=== PATIENT | female | born 1945 | race Caucasian/White ===

== ENCOUNTER 2016-04-21 11:36 | Inpatient (IN) | payer MEDICARE, MEDICAID ==
[2016-04-21] VITALS (7 sets, daily range): BP systolic 131–135; BP diastolic 67–69; PULSE 57–60; RESP 20–22; TEMP 96.7–97.3; O2SAT 74–97; Ht 160 cm; Wt 104.3 kg
[~2016-04-21] VITALS: Ht 160 cm; Wt 104.3 kg
[~2016-04-21 11:36] MED LIST: ASCO-296 PO; ASPI-730 PO; ATEN1TAB30 PO; ATOR40TA20 PO; CALC600T12 PO; CLOP75TA13 PO; MULT-806 PO; NITR0.4T28 SL; POTA1TAB11 PO; POTASSIUM CHLORIDE 10 MEQ TABLET PO SCH
--- OUTSIDE RECORDS SUMMARY | 2016-04-21 11:42 | XMS REPORT ---
Author Author Dolly Barron [facility] eClinicalWorks Address Unknown Phone Unavailable Care Team Providers Care Structural Welder Name Role Phone Dolly Barron CP Unavailable Allergies No Known Allergies Problems Problem Type Condition Code Onset Dates Condition Status Problem Malignant neoplasm of breast (female), unspecified site 174.9 Active Problem Hypertension, benign 401.1 Active Problem Tobacco use disorder 305.1 Active Assessment Hypertension, benign 401.1 Active Problem Other and unspecified hyperlipidemia 272.4 Active Problem Asthma, unspecified, unspecified status 493.90 Active Medications Medication Code System Code Instructions Start Date End Date Status Dosage Atenolol-Chlorthalidone [facility] [address]-33 50-25 MG Orally Once a day Oct 09, 2012 1 tablet Results No Known Results Summary Purpose eClinicalWorks Submission
--- OUTSIDE RECORDS SUMMARY | 2016-04-21 11:42 | XMS REPORT ---
Author Author Dolly Barron [facility] eClinicalWorks Address Unknown Phone Unavailable Care Team Providers Care Acoustic Engineer Name Role Phone Dolly Barron CP Unavailable Allergies No Known Allergies Problems Problem Type Condition ICD-9 Code Onset Dates Condition Status Problem Malignant neoplasm of breast (female), unspecified site 174.9 Active Problem Hypertension, benign 401.1 Active Problem Tobacco use disorder 305.1 Active Problem Other and unspecified hyperlipidemia 272.4 Active Problem Asthma, unspecified, unspecified status 493.90 Active Medications No Known Medications Vital Signs Date/Time: Nov 20, 2013 Height 63.5 inches Weight 230.8 lbs Temperature 98.4 F Blood Pressure Diastolic 66 mm Hg Blood Pressure Systolic 122 mm Hg Cardiac Monitoring Heart Rate 80 Beats per Minute BMI 40.24 Index Respiratory Rate 16 per Minute Results No Known Results Summary Purpose eClinicalWorks Submission
--- OUTSIDE RECORDS SUMMARY | 2016-04-21 11:42 | XMS REPORT ---
Author Author Dolly Barron [facility] eClinicalWorks Address Unknown Phone Unavailable Care Team Providers Care Bean Sorter Name Role Phone Dolly Barron CP Unavailable [...]
--- OUTSIDE RECORDS SUMMARY | 2016-04-21 11:42 | XMS REPORT ---
Author Author Dolly Barron [facility] eClinicalWorks Address Unknown Phone Unavailable Care Team Providers Care Money Position Officer Name Role Phone Dolly Barron CP Unavailable Allergies No Known Allergies Problems Problem Type Condition Code Onset Dates Condition Status Problem Malignant neoplasm of breast (female), unspecified site 174.9 Active Problem Hypertension, benign 401.1 Active Problem Tobacco use disorder 305.1 Active Problem Unspecified asthma, uncomplicated J45.909 Active Problem Other and unspecified hyperlipidemia 272.4 Active Problem Asthma, unspecified, unspecified status 493.90 Active Medications Medication Code System Code Instructions Start Date End Date Status Dosage Albuterol Sulfate [facility] [address]-56 (2.5 MG/3ML) 0.083% Inhalation. DX code J45.909 3-4 times a day as needed May 13, 2014 3 ml. May refill early this month in May 2015 Results No Known Results Summary Purpose eClinicalWorks Submission
--- OUTSIDE RECORDS SUMMARY | 2016-04-21 11:42 | XMS REPORT ---
Author Dolly Jett eClinicalWorks Address Unknown Phone Unavailable Care Team Providers Care Education Department Registrar Name Role Phone Dolly Barron CP Unavailable Allergies, Adverse Reactions, Alerts Substance Reaction Event Type N.K.D.A. Info Not Available Non Drug Allergy Problems Problem Type Condition Code Onset Dates Condition Status Problem Unspecified asthma, uncomplicated J45.909 Active Problem Other and unspecified hyperlipidemia 272.4 Active Problem Asthma, unspecified, unspecified status 493.90 Active Problem Other hyperlipidemia E78.4 Active Problem 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 Problem Essential (primary) hypertension I10 Active Problem Malignant neoplasm of breast (female), unspecified site 174.9 Active Problem Hypertension, benign 401.1 Active Problem Claudication of both lower extremities I73.9 Active Problem Tobacco use disorder 305.1 Active Assessment 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 DX code J45.909 3-4 times a day as needed May 13, 2014 3 ml. May refill early this month in May 2015 Atenolol-Chlorthalidone [facility] [address]-00 50-25 MG Orally Once a day Oct 09, 2012 1 tablet Potassium [facility] [address]-65 ONCE A DAY not defined Calcium [facility] 75309-25227 600 MG ONCE A DAY 1 TABLET Quinine Sulfate [facility] [address]-98 PRN not defined Lipitor [facility] 90606894859 40MG Orally Once a day 1 tablet Lipitor [facility] [address]-50 40 MG Orally Once a day Oct 09, 2012 1 tablet Voltaren [facility] [address]-29 1 % Transdermal up to 4 times a day Jan 04, 2016 May 03, 2016 2-4 grams Multivitamins [facility] [address]-54 ONCE A DAY 1 TABLET Procedures Procedure Coding System Code Date OFFICE VISIT, EST-LOW COMPLEXITY (15 MIN.) CPT-4 05240 Jan 04, 2016 [facility] visit Established Patient CPT-4 G0467 Jan 04, 2016 Vital Signs Date/Time: Jan 04, 2016 Temperature 98.1 F Height 63.5 in Weight 241 lbs Blood Pressure Diastolic 68 mm Hg Blood Pressure Systolic 100 mm Hg Cardiac Monitoring Heart Rate 65 /min BMI 42.02 Index Oximetry 95 % Respiratory Rate 18 /min Results No Known Results Summary Purpose eClinicalWorks Submission
--- OUTSIDE RECORDS SUMMARY | 2016-04-21 11:42 | XMS REPORT ---
Author Author Dolly Barron [facility] Address [address], [place] [id number] Care Team Providers Care Sounding Device Operator Name Role Phone Dolly Barron Unavailable [phone] PROBLEMS Type Condition ICD9-CM Code [id number] Code Onset Dates Condition Status SNOMED Code Problem Asthma, unspecified, unspecified status 493.90 Active 64731914 Problem Hypertension, benign 401.1 Active 98675157 Problem Other and unspecified hyperlipidemia 272.4 Active 60533769 Assessment Essential (primary) hypertension I10 Jan, Active 30383526 Problem Unspecified asthma, uncomplicated J45.909 Active 34461092 Problem Essential (primary) hypertension I10 Active 08721852 Problem Other hyperlipidemia E78.4 Active 40508778 Problem Tobacco use disorder 305.1 Active 413439230 Problem Malignant neoplasm of breast (female), unspecified site 174.9 Active 055345596 Problem 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 616159527 Problem Claudication of both lower extremities I73.9 Active 458007682 ALLERGIES Unknown Allergies SOCIAL HISTORY No smoking Hx information available PLAN OF CARE Activity Details Pending Test In House HB A1c Pending Test In House CMP ,Reason: VITAL SIGNS MEDICATIONS Medication Instructions Dosage Frequency Start Date End Date Duration Status Quinine Sulfate Active Calcium 600 MG 1 TABLET 24h Active Aspirin 81 MG Orally ONCE A DAY 1 TABLET 24h Active Lipitor 40MG Orally Once a day 1 tablet 24h 30 Active Vitamin C 500 MG 1 TABLET 24h Active Lipitor 40 MG Orally Once a day 1 tablet 24h Oct, 30 days Active Multivitamins 1 TABLET 24h Active Albuterol Sulfate (2.5 MG/3ML) 0.083% Inhalation. DX code J45.909 3-4 times a day as needed 3 ml. May refill early this month in May 2015 May, 30 days Active Potassium 24h Active Atenolol-Chlorthalidone 50-25 MG Orally Once a day 1 tablet 24h Oct, 30 days Active Voltaren 1 % Transdermal up to 4 times a day 2-4 grams 29 Nov, 2016 29 Mar, 2017 30 days Active RESULTS Name Result Date Reference Range In House HB A1c 2016-01-18 Hemoglobin A1c 5.4 In House CMP 2016-01-18 Sodium 140 128 - 145 mmol/L Potassium 3.8 3.6 - 5.1 mmol/L CO2 30 18 - 33 mmol/L Chloride 100 98 - 108 mmol/L Glucose 100 73 - 118 mg/DL Calcium 9.6 8.0 - 10.3 mg/DL BUN 12 7 - 22 mg/DL Creatinine 0.7 0.6 - 1.2 mg/DL Alkaline Phosphatase 59 53 - 128 u/L ALT 17 10 - 47 u/L AST 31 11 - 38 u/L Total Bilirubin 1.0 0.2 - 1.6 mg/DL Albumin 3.7 3.3 - 5.5 g/DL EGFR >60 Total Protein 6.6 6.4 - 8.1 G/DL PROCEDURES Procedure Date Ordered Related Diagnosis Body Site HEMOGLOBIN A1C, IN HOUSE Jan 18, 2016 [facility] Jan 18, 2016 IMMUNIZATIONS No Known Immunizations
--- OUTSIDE RECORDS SUMMARY | 2016-04-21 11:42 | XMS REPORT ---
Author Author Dolly Barron eClinicalWorks Address Unknown Phone Unavailable Care Team Providers Care Data Governance Analyst Name Role Phone Dolly Barron Unavailable Allergies No Known Allergies Problems Problem [...] Active Assessment Other hyperlipidemia E78.4 Active Assessment Essential (primary) hypertension I10 Active Medications Medication Code System Code Instructions Start Date End Date Status Dosage Quinine Sulfate [facility][NOTE 3] [address]-00 PRN not defined Calcium [facility][NOTE 3] [address]56 600 MG ONCE A DAY 1 TABLET Lipitor [facility][NOTE 3] 49106152480 40MG Orally Once a day 1 tablet Vitamin C [facility][NOTE 3] 677[address]294 500 MG ONCE A DAY 1 TABLET Aspirin [facility][NOTE 3] [address]-14 81 MG Orally ONCE A DAY 1 TABLET Lipitor [facility][NOTE 3] [address]-64 40 MG Orally Once a day Oct 09, 2012 1 tablet Albuterol Sulfate [facility][NOTE 3] [address]-45 (2.5 MG/3ML) 0.083% Inhalation. DX code J45.909 3-4 times a day as needed May 13, 2014 3 ml. May refill early this month in May 2015 Atenolol-Chlorthalidone [facility][NOTE 3] [address]-17 50-25 MG Orally Once a day Oct 09, 2012 1 tablet Voltaren [facility][NOTE 3] [address]-78 1 % Transdermal up to 4 times a day Jan 04, 2016 May 03, 2016 2-4 grams Potassium [facility][NOTE 3] [address]-27 ONCE A DAY not defined Multivitamins [facility][NOTE 3] [address]-29 ONCE A DAY 1 TABLET Procedures Procedure Coding System Code Date COMPREHENSIVE METABOLIC PANEL CPT-4 42545 Jan 04, 2016 COMPLETE CBC W/AUTO DIFF WBC CPT-4 28645 Jan 04, 2016 Results No Known Results Summary Purpose eClinicalWorks Submission
--- OUTSIDE RECORDS SUMMARY | 2016-04-21 11:42 | XMS REPORT ---
Author Author Dolly Barron [facility] eClinicalWorks Address Unknown Phone Unavailable Care Team Providers Care Rehab Services Aide Name Role Phone Dolly Barron CP Unavailable [...] Date End Date Status Dosage Albuterol Sulfate [facility] [address]-07 (2.5 MG/3ML) 0.083% Inhalation Three times a day as needed May 13, 2014 3 ml Results No Known Results Summary Purpose eClinicalWorks Submission
--- OUTSIDE RECORDS SUMMARY | 2016-04-21 11:42 | XMS REPORT ---
Author Author Dolly Barron [facility] eClinicalWorks Address Unknown Phone Unavailable Care Team Providers Care Admission Nurse Coordinator Name Role Phone Dolly Barron CP Unavailable [...] Instructions Start Date End Date Status Dosage Lipitor [facility] [address]-80 40 MG Orally Once a day Oct 09, 2012 1 tablet Results No Known Results Summary Purpose eClinicalWorks Submission
--- OUTSIDE RECORDS SUMMARY | 2016-04-21 11:43 | XMS REPORT ---
Author Dolly Jett eClinicalWorks Address Unknown Phone Unavailable Care Team Providers Care Gyroscope Technician Name Role Phone Dolly Barron CP Unavailable Allergies, Adverse Reactions, Alerts Substance Reaction Event Type N.K.D.A. Info Not Available Non Drug Allergy Problems Problem Type Condition Code Onset Dates Condition Status Assessment Claudication of both lower extremities I73.9 Active Problem Tobacco use disorder 305.1 Active Problem Malignant neoplasm of breast (female), unspecified site 174.9 Active Problem Claudication of both lower extremities I73.9 Active Problem Asthma, unspecified, unspecified status 493.90 Active Problem Unspecified asthma, uncomplicated J45.909 Active Problem Hypertension, benign 401.1 Active Problem Other and unspecified hyperlipidemia 272.4 Active Medications Medication Code System Code Instructions Start Date End Date Status Dosage Aspirin [facility] [address]-57 325 MG ONCE A DAY 1 TABLET Calcium [facility] 7[address]46-[address]6846 600 MG ONCE A DAY 1 TABLET Lipitor [facility] [address]-38 40 MG Orally Once a day Oct 09, 2012 1 tablet Quinine Sulfate [facility] [address]-24 PRN not defined Multivitamins [facility] [address]-53 ONCE A DAY 1 TABLET Potassium [facility] [address]-71 ONCE A DAY not defined Albuterol Sulfate [facility] [address]-75 (2.5 MG/3ML) 0.083% Inhalation. DX code J45.909 3-4 times a day as needed May 13, 2014 3 ml. May refill early this month in May 2015 Atenolol-Chlorthalidone [facility] [address]-71 50-25 MG Orally Once a day Oct 09, 2012 1 tablet Vitamin C [facility] 36[address]374 500 MG ONCE A DAY 1 TABLET Procedures Procedure Coding System Code Date OFFICE VISIT, EST-LOW COMPLEXITY (15 MIN.) CPT-4 94882 Oct 18, 2015 [facility] Established Patient CPT-4 G0467 Oct 18, 2015 Vital Signs Date/Time: Oct 18, 2015 Temperature 98.1 F Height 63.5 in Weight 241.8 lbs Blood Pressure Diastolic 66 mm Hg Blood Pressure Systolic 118 mm Hg Cardiac Monitoring Heart Rate 76 /min BMI 42.16 Index Oximetry 97 % Respiratory Rate 16 /min Results No Known Results Summary Purpose eClinicalWorks Submission
--- OUTSIDE RECORDS SUMMARY | 2016-04-21 11:43 | XMS REPORT ---
Author Author Dolly Barron [facility] eClinicalWorks Address Unknown Phone Unavailable Care Team Providers Care International Guest Coordinator Name Role Phone Dolly Barron CP [...] Start Date End Date Status Dosage Atenolol-Chlorthalidone [facility] [address]-56 50-25 MG Orally Once a day *NEED APPT. BEFORE NEXT REFILL* Oct 09, 2012 Active 1 tablet Lipitor [facility] [address]-37 40 MG Orally Once a day *NEED APPT. BEFORE NEXT REFILL* Oct 09, 2012 Active 1 tablet Vital Signs Date/Time: May 02, 2013 Height 63.5 inches Weight 242 lbs Temperature 98.2 F Blood Pressure Diastolic 76 mm Hg Blood Pressure Systolic 146 mm Hg Cardiac Monitoring Heart Rate 72 Beats per Minute BMI 42.19 Index Respiratory Rate 20 per Minute Results No Known Results Summary Purpose eClinicalWorks Submission
--- OUTSIDE RECORDS SUMMARY | 2016-04-21 11:43 | XMS REPORT ---
Author Author Dolly Barron [facility] eClinicalWorks Address Unknown Phone Unavailable Care Team Providers Care Grain Sacker Name Role Phone Dolly Barron CP Unavailable Allergies No Known Allergies Problems Problem Type Condition Code Onset Dates Condition Status Problem Tobacco use disorder 305.1 Active Problem Malignant neoplasm of breast (female), unspecified site 174.9 Active Problem Claudication of both lower extremities I73.9 Active Problem Asthma, unspecified, unspecified status 493.90 Active Problem Unspecified asthma, uncomplicated J45.909 Active Problem Hypertension, benign 401.1 Active Problem Other and unspecified hyperlipidemia 272.4 Active Medications Medication Code System Code Instructions Start Date End Date Status Dosage Albuterol Sulfate [facility] 35249871428 0.083% Inhalation. DX code J45.909 3-4 times a day 3 ml as needed Results No Known Results Summary Purpose eClinicalWorks Submission
--- OUTSIDE RECORDS SUMMARY | 2016-04-21 11:43 | XMS REPORT ---
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
--- OUTSIDE RECORDS SUMMARY | 2016-04-21 11:43 | XMS REPORT ---
Author Author Dolly Barron [facility] eClinicalWorks Address Unknown Phone Unavailable Care Team Providers Care Leasing Sales Consultant Name Role Phone Dolly Barron CP Unavailable [...] Date End Date Status Dosage Albuterol Sulfate [facility] [address]-89 (2.5 MG/3ML) 0.083% Inhalation. DX code 493.90 Three times a day as needed May 13, 2014 3 ml Results No Known Results Summary Purpose eClinicalWorks Submission
--- OUTSIDE RECORDS SUMMARY | 2016-04-21 11:43 | XMS REPORT ---
Author Author Dolly Barron [facility] eClinicalWorks Address Unknown Phone Unavailable Care Team Providers Care Pc Support Specialist Name Role Phone Dolly Barron CP Unavailable Allergies No Known Allergies Problems Problem Type Condition Code Onset Dates Condition Status Problem Malignant neoplasm of breast (female), unspecified site 174.9 Active Problem Hypertension, benign 401.1 Active Problem Tobacco use disorder 305.1 Active Assessment Rash and other nonspecific skin eruption R21 Active Problem Other and unspecified hyperlipidemia 272.4 Active Problem Asthma, unspecified, unspecified status 493.90 Active Medications Medication Code System Code Instructions Start Date End Date Status Dosage Potassium [facility] [address]-83 ONCE A DAY not defined Multivitamins [facility] [address]-25 ONCE A DAY 1 TABLET Nitroglycerin [facility] [address]-72 0.4 MG PRN 1 TABLET SL Quinine Sulfate [facility] [address]-90 PRN not defined Vitamin C [facility] [address] 500 MG ONCE A DAY 1 TABLET Albuterol Sulfate [facility] [address]-32 (2.5 MG/3ML) 0.083% Inhalation. DX code J45.909 Three times a day as needed May 13, 2014 3 ml Aspirin [facility] [address]-21 325 MG ONCE A DAY 1 TABLET Lipitor [facility] [address]-26 40 MG Orally Once a day Oct 09, 2012 1 tablet Calcium [facility] [address] 600 MG ONCE A DAY 1 TABLET Atenolol-Chlorthalidone [facility] [address]-72 50-25 MG Orally Once a day Oct 09, 2012 1 tablet Procedures Procedure Coding System Code Date OFFICE VISIT, EST-LOW COMPLEXITY (15 MIN.) CPT-4 59405 Nov 24, 2014 [facility] visit Established Patient CPT-4 G0467 Nov 24, 2014 Results No Known Results Summary Purpose eClinicalWorks Submission
--- OUTSIDE RECORDS SUMMARY | 2016-04-21 11:43 | XMS REPORT ---
Author Author Dolly Barron [facility] eClinicalWorks Address Unknown Phone Unavailable Care Team Providers Care Trommel Tender Name Role Phone Dolly Barron CP Unavailable Allergies No Known Allergies Problems Problem Type Condition ICD-9 Code Onset Dates Condition Status Assessment Malignant neoplasm of breast (female), unspecified site 174.9 Active Problem Malignant neoplasm of breast (female), unspecified site 174.9 Active Problem Hypertension, benign 401.1 Active Problem Tobacco use disorder 305.1 Active Assessment Hypertension, benign 401.1 Active Assessment Other and unspecified hyperlipidemia 272.4 Active Problem Other and unspecified hyperlipidemia 272.4 Active Problem Asthma, unspecified, unspecified status 493.90 Active Medications Medication Code System Code Instructions Start Date End Date Status Dosage Potassium [facility] [address] ONCE A DAY Active not defined Nitroglycerin [facility] [address]-46 0.4 MG PRN Active 1 TABLET SL Lipitor [facility] [address]-75 40 MG Orally Once a day Oct 09, 2012 Active 1 tablet Vitamin C [facility] 21110-[address]72 500 MG ONCE A DAY Active 1 TABLET Quinine Sulfate [facility] [address]-78 PRN Active not defined Calcium [facility] 535[address]874 600 MG ONCE A DAY Active 1 TABLET Aspirin [facility] [address]-08 325 MG ONCE A DAY Active 1 TABLET Atenolol-Chlorthalidone [facility] [address]-56 50-25 MG Orally Once a day Oct 09, 2012 Active 1 tablet Multivitamins [facility] 98250-[address]472 ONCE A DAY Active 1 TABLET Procedures Procedure Coding System Code Date LIPID PANEL CPT-4 29068 Nov 20, 2013 OFFICE VISIT, EST-LOW COMPLEXITY (15 MIN.) CPT-4 68618 Nov 20, 2013 COMPREHENSIVE METABOLIC PANEL CPT-4 69488 Nov 20, 2013 Vital Signs Date/Time: Nov 20, 2013 Height 63.5 inches Weight 230.8 lbs Temperature 98.4 F Blood Pressure Diastolic 66 mm Hg Blood Pressure Systolic 122 mm Hg Cardiac Monitoring Heart Rate 80 Beats per Minute BMI 40.24 Index Respiratory Rate 16 per Minute Results Name Result Date Reference Range Unit Comprehensive Metabolic Panel (CMP) ----Anion Gap 8 [id number] -3-20 ----AST (SGOT) 15 [id number] -5-34 U/L ----Globulin 2.1 81007973 -1.8-4.0 g/dL ----Albumin 3.7 46186502 -3.4-4.8 g/dL ----CO2 29 [id number] -22-31 mEq/L ----Chloride 106 [id number] -99-111 mEq/L ----Potassium 3.8 28388765 -3.5-5.2 mEq/L ----Sodium 143 [id number] -135-144 mEq/L ----Alkaline Phosphatase 74 [id number] -40-150 U/L ----Bilirubin Total 0.5 90719410 -0.2-1.2 mg/dL ----ALT (SGPT) 9 [id number] -0-55 U/L ----Protein 5.8 11547434 -6.2-8.1 g/dL ----Glucose 111 60055798 -70-99 mg/dL ----BUN 16 [id number] -10-20 mg/dL ----Creatinine 0.78 61304040 -0.57-1.11 mg/dL ----Calcium 9.5 45593561 -8.9-10.5 mg/dL Lipid Panel Summary Purpose eClinicalWorks Submission
--- NOTE | 2016-04-21 12:00 | NUR ---
Admit Patient admitted from 's office to medical unit room 139. When patient arrived she was visibly short of air. O2 saturation checked and found to be 74%. Oxygen applied. Admit process started.
--- NOTE | 2016-04-21 12:30 | NUR ---
Oxygen Patient requiring 4 L O2 by NC to keep O2 saturation >92%. Will continue to monitor.
[2016-04-21] MEDS: NORMAL SALINE 1,000 ML IV SCH (13:15)
[2016-04-21 13:34] LABS: HCT - HEMATOCRIT 37.3 % (36-46); MEAN CORPUSCULAR HGB 29.6 UUG (26-34); MEAN CORPUSCULAR HGB CONC(MCHC 32.2 GM/DL (31-37); MEAN CORPUSCULAR VOLUME 92.1 UM3 (80-100); MEAN PLATELET VOLUME 9.2 UM3 (9.4-12.4); RED BLOOD COUNT 4.05 M/MM3 (4.00-5.20); WBC - WHITE BLOOD COUNT 2.7 T/MM3 (4.5-11.0)
[2016-04-21 13:42] LABS: INR 1.04 (0.76-1.04); PROTHROMBIN TIME 11.3 SEC (9.31-12.49); PTT 25.6 SEC (24-36)
[2016-04-21 13:45] LABS: ALBUMIN 3.9 G/DL (3.5-5.0); ALBUMIN/GLOBULIN RATIO 1.2 RATIO (1.1-2.2); ALKALINE PHOSPHATASE 82 U/L (38-126); ALT (SGPT) 34 U/L (9-52); ANION GAP 9 MEQ/L (5-15); AST (SGOT) 45 U/L (14-36); BUN/CREATININE RATIO 30 RATIO (6-26); CALCIUM 9.4 MG/DL (8.4-10.2); CHLORIDE 99 MEQ/L (98-107); CK - CPK 118 U/L (30-135); CO2 - CARBON DIOXIDE 32 MEQ/L (22-30); GLOMERULAR FILTRATION RATE 55; GLUCOSE 98 MG/DL (65-110); PHOSPHORUS 3.5 MG/DL (2.5-4.5); SODIUM 140 MEQ/L (134-144); TOTAL PROTEIN 7.1 G/DL (6.3-8.2)
--- NOTE | 2016-04-21 14:05 | DI ---
EXAM: CHEST, PA LATERAL COMPARISON: 04/17/2016. 03/13/2016 HISTORY: ITS.REASON: hypoxia . FINDINGS:The lungs are hyperinflated with flattening of the diaphragms and increased AP diameter which could be related to chronic emphysematous changes. The heart is enlarged. The pulmonary vascularity appears unremarkable. The lungs are clear. There is no evidence for pleural effusion. There is no evidence for a pneumothorax. Mild endplate sclerosis and spurring is seen of the thoracic spine. IMPRESSION: 1. Cardiomegaly. 2. Chronic emphysematous changes. [place] [facility] [place]
[2016-04-21 14:22] LABS: BAND NEUTROPHILS # 0.2 T/MM3; LYMPHOCYTES # (MANUAL) 0.8 T/MM3 (1-4.8); MONOCYTES # (MANUAL) 0.1 T/MM3 (0-0.8); NEUTROPHILS #(MANUAL)-ABSOLUTE 1.6 T/MM3 (1.8-7.7); TOTAL CELLS COUNTED 100 %
[2016-04-21 14:41] LABS: THYROID STIM HORMONE-TSH 2.52 MIU/L (0.47-4.68)
[2016-04-21] MEDS: ATENOLOL/CHLORTHALIDONE 50 MG/25 MG TABLET PO SCH (14:57)
[2016-04-21] MEDS: ASPIRIN 325 MG TABLET PO SCH (14:57)
[2016-04-21] MEDS: BENZONATATE 200 MG CAPSULE PO SCH ×2 (14:57→22:35)
[2016-04-21] MEDS: ASCORBIC ACID 500 MG TABLET PO SCH (14:58)
[2016-04-21] MEDS: MULTIVITAMIN PLAIN TABLET PO SCH (14:58)
[2016-04-21] MEDS: ALBUTEROL/IPRATROPIUM INHAL. 2.5mg-0.5mg/3ml Neb. AEROSOL SCH ×2 (15:04→20:45)
[2016-04-21] MEDS: DOXYCYCLINE 100 MG TABLET PO SCH (15:26)
[2016-04-21] MEDS: OSELTAMIVIR 30 MG CAPSULE PO SCH (15:26)
[2016-04-21] MEDS: MethylPREDNISolone SOD SUCC 40mg/1ml IV SCH (15:26)
[2016-04-21] MEDS: NICOTINE 14 MG PATCH TD SCH (15:26)
[2016-04-21] MEDS ORDERED: POTASSIUM CHLORIDE 10 MEQ TABLET PO SCH (16:00)
[2016-04-21 16:33] LABS: BLOOD, URINE NEGATIVE (NEGATIVE); COLOR,URINE YELLOW (YELLOW); LEUKOCYTE ESTERASE ,URINE NEGATIVE (NEGATIVE); NITRITE,URINE NEGATIVE (NEGATIVE); UROBILINOGEN,URINE 0.2 EU/DL (NORMAL)
[2016-04-21 16:49] LABS: BACTERIA,URINE TRACE (NEGATIVE); RBC,URINE 0-1 /HPF (0-3); SQUAMOUS EPITHELIAL CELL,UR 0-5
--- NOTE | 2016-04-21 17:17 | HPPDOC ---
HPI - Adult Date DATE: 04/21/16 TIME: 12:15 General Chief Complaint: acute hypoxic respiratory failure History of Present Illness patient is a pleasant 70yo female known to our clinic. she was in her usual state of health until about 2 weeks ago. her daughter had repeatedly been in their presence suffering from an influenza-like illness. at that time she started with runny nose and clear rhinorrhea and it developed into fevers, chills, body aches and fatigue as well as productive cough yellow sputum. she has also developed SOA and wheezing on exertion. she had been seen in clinic by her usual PCP and treated with antibiotics but her symptoms have continued to persist. she presented for an acute care visit for the above complaints today and was noted to have O2 sats in the mid to low-80's. her vitals were otherwise stable but, given her hypoxemia and the fact her issues are refractory to outpatient therapy she was admitted to [facility] [place] [facility] for further evaluation and treatement. currently patient is otherwise stable. it should be noted her has just been diagnosed with influenza B. her daughter is present for some of the encounter and does contribute to history. positive for fevers, chills, body aches and fatigue above. no night sweats or weight changes or other constitutional symptoms. no headaches, stroke symptoms , focal neurologic deficits, seizure symptoms, syncope, dizziness. no unintentional weight loss or gain. no ear pain, sinus pain, sore throat. no vertigo, falls, hearing loss, tinnitus. no vision changes. no face swelling. no chest pain. no SOA or wheezing at rest but both noted on exertion. no hemoptysis. yellow sputum production. still with some clear to yellow rhinorrhea. no orthopnea, PND, edema or other acute heart failure symptoms. no ab pain, GERD symptoms, nausea, vomiting, diarrhea, constipation, bloody/ black stools, dysuria, hematuria, urinary frequency, flank pain, nocturia, other urinary symptoms, bowel/bladder incontinance, other musculoskeletal pain. no skin/soft tissue problems or changes. no homicidal/suicidal ideations. see above and below for other ROS. Past Medical History Past Medical History -hyperlipidemia -hypertension -osteopenia -chronic tobaccoism -COPD -CAD -osteoarthritis Surgical History Patient's Surgical History: -tubal ligation -coronary stents -breast lumpectomy Current Medications Home Meds Reported Medications Aspirin (Aspirin) 325 Mg Tablet, 325 MG PO DAILY, TAB 04/28/13 Calcium Carbonate (Calcium) 600 Mg Tablet, 600 MG PO DAILY, TAB 04/28/13 Atenolol/Chlorthalidone (Atenolol-Chlorthal 50-25 Tb) 1 Tab Tablet, 1 TAB PO DAILY 06/18/12 Ascorbic Acid (Vitamin C) 500 Mg Tablet, 500 MG PO DAILY 06/17/12 Atorvastatin Calcium (Lipitor) 40 Mg Tablet, 40 MG PO DAILY 06/17/12 Multivitamins (Multivitamin) 1 Tab Tablet, 1 TAB PO DAILY 01/23/11 Potassium Gluconate (Potassium Gluconate) 1 Tab Tablet, 1 TAB PO DAILY 11/04/08 Allergies: Coded Allergies: Tuberculin,Purif.Prot.Deriv. (Verified Adverse Reaction, Intermediate, ) Uncoded Allergies: TUBERULIN SKIN TEST (Allergy, Unknown, SWELLING, 06/17/12) Family History Family History: -father at age 84 from T2DM -mother at age 44 from unknown type of cancer Social History Social History Comments -chronic longtime smoker -no alcohol use -no illicit drug use -lives at home with . Review of Systems Constitutional: REPORTS: see HPI Comments see above HPI. Eyes General: REPORTS: see HPI Comments no vision changes. see HPI. ENMT Ears: REPORTS: see HPI Comments see HPI. Cardiovascular see HPI Comments no unilateral swelling. no new edema. no numbness/weakness/tingling in any of her extremities. Pulmonary Respiratory: see HPI Comments see HPI. GI Upper Abdomen: see HPI Comments no abdominal swelling or ascites. see above HPI. General: see HPI Comments no urinary issues. see above HPI. Musculoskeletal General: see HPI Comments no joint swelling. Integumentary Skin: see HPI Comments no skin or soft tissue changes. Neurological General: see HPI Comments no stroke symptoms. focal neurologic deficits, focal neurologic type deficits, seizure symptoms, headaches. see above HPI. Psychiatric Psychiatric: see HPI Comments no homicidal/suicidal ideations. see HPI. Endocrine see HPI Comments no thyroid symptoms. Hematologic/Lymphatic see HPI Comments no abnormal bleeding. Allergic/Immunological see HPI Comments see the above for allergies and ADR's. Physical Exam General General Nourishment: obese, apparent age, adult Comments no scleral icterus or trauma. Comments TM clear bilaterally. external auditory canals normal bilateral. no face swelling. throat is clear. no sinus pain to palpation b/l at this time. no clinical evidence of mucor at this time. nares patent. kimberley moderately inflammed b/l without exudate. Comments no adenopathy, thyromegally, JVD. no photophobia and no nuchal rigidity. no clinical evidence of meningitis at this time. patient also denies photophobia and ROS negative for meningitis. trachea midline. no trachial deviation. Respiratory Brief: FOUND: clear all henry, equal bilaterally, symmetrical Comments some crackles in RLL that clear on coughing. no respiratory distress, retractions, accessory muscle use. some bibasilar wheezes, moderate, noted bilaterally. lung sounds heard in all lung henry b/l at this time. moving air well. Cardiovascular (brief) Cardiac Brief: FOUND: regular rate, regular rhythm Comments no new edema. legs symmetrical and compartments soft b/l at this time. no murmur. no stigmata of heart failure. clinically well perfused in all 4 extremities at this time. Abdomen (brief) Abdominal Brief: FOUND: BS normo active x4, soft (X4.) Comments non tender X4. no distension, hepatosplenomegaly, pulsitile mass. no ascites. (brief) Comments no tenderness over bladder area. Lymphatic (brief) Comments no lymphedema. Musculoskeletal (brief) Musculoskeletal Brief: FOUND: extremities move equally Comments no deformity or loss of motion. Integumentary (brief) Integumentary Brief: FOUND: dry, pink, warm Comments no rash or lesions to uncovered areas. Neurologic (brief) Comments no focal deficits grossly. Neurologic RN Documented GCS Eye Opening: Verbal: Motor: Total: Psychiatric (brief) FOUND: alert, attentive, normal affect, oriented Laboratory see above and below. Microbiology see below. EKG see above and below. Radiology see above and below. Concerns For Adverse Events see below. Sepsis Diagnostic Criteria Comments see below. Assessment & Plan Assessment acute hypoxic respiratory failure secondary to acute on chronic COPD exacerbation exposure to influenza B acute bronchitis CAD hyperlipidemia HTN -admit to inpatient, routine vitals with call parameters, I's and O's, daily weights, telemetry, oxygen as needed, up with assist, cardiac diet. if no clinical improvement, looking for VTE a consideration but clinically current symptoms appear to be from bronchitis/COPD right now. -follow on cbc, cmp, mg, phos, troponin, CK, blood cultures X2, sputum cx and gram stain, respiratory PCR and influenza, TSH -cbc, cmp in the AM. -EKG, CXR now. -start IV solumedrol, PO doxycycline, incentive spirometry, duonebs scheduled, zoila castaneda. continue home lipitor, atenolol/chlorthalidone with hold parameters. continue home ASA. continue home potassium. start tamiflu. continue home vitamin C. -further management pending the above. tobaccoism -will start nicotine patch. osteoarthritis -hold home volltaren gel osteopenia -continue home calcium and multivitamin. all other chronic medical conditions stable and no changes to plan of care at this time. ppx -SCD's for DVT ppx. patient may be able to go home tomorrow. if this is the case then given the short length of stay the risk of pharmacologic DVT ppx outweighs the benefit. if will be here longer it is a consideration (pharmacologic DVT ppx). -PO diet above for GI ppx. -FULL CODE -dispo heavily dependent on the above. Code Status CANDICE HARP DO Apr 21, 2016 12:15
--- NOTE | 2016-04-21 19:23 | NUR ---
Status Patient up by self in room without difficulty. Gait steady. Continues on 4 L O2 by NC. Unable to wean at present time. Precautions have been maintained since ordered. Patient understands precautions and plan of care. Daughter visited this afternoon. Minimal needs today. Call light within reach.
[2016-04-21] MEDS ORDERED: OSELTAMIVIR 75 MG CAPSULE PO SCH (21:00)
[2016-04-21] MEDS: ATORVASTATIN 40 MG TABLET PO SCH (22:35)
[2016-04-21] MEDS: ACETAMINOPHEN 325 MG TABLET PO PRN (22:36)
[2016-04-22] VITALS (11 sets, daily range): BP systolic 137–172; BP diastolic 70–99; PULSE 60–73; RESP 20–22; TEMP 96.5–98.6; O2SAT 90–95
[2016-04-22] MEDS: MethylPREDNISolone SOD SUCC 40mg/1ml IV SCH ×3 (02:27→16:17)
--- NOTE | 2016-04-22 04:27 | PNPDOC ---
Subjective Date DATE: 04/22/16 TIME: 03:51 Subjective patient doing better overall. breathing much improved on 4 to 5 liters of oxygen. no body aches, chills, fevers. cough improved. had mild bifrontal headache yesterday but this has resolved with tylenol prn. no new headaches, stroke symptoms, focal neurologic deficits, meningeal symptoms, photophobia, syncope, dizziness. no ear pain, sinus pain, sore throat. no night sweats or other constitutional symptoms. no chest pain. no SOA at rest or exertion on the oxygen. no hemoptysis. cough improved. less sputum production. no syncope, dizziness. no ab pain, GERD symptoms, hematemesis, coffee ground emesis, melena, BRBRPR, constipation, diarrhea. last BM was yesterday and was normal. no dysuria, hematuria, urinary frequency, flank pain, nocturia, other urinary symptoms. patient notes her is critically ill and she's under lots of stress but coping well. "God will provide" she notes. daughter Ruba present for part of encounter today. no events called on telemetry. no acute issues overnight. Objective Vital Signs Vital signs Vital Signs Date Time Temp Pulse Resp B/P Pulse Ox O2 Delivery O2 Flow Rate FiO2 04/22/16 02:20 94 Nasal Cannula 5.00 04/22/16 00:45 97.4 60 20 154/80 Height (Feet): 5 Height (Inches): 3.00 Weight (Kilograms): 104.500 General General Appearance: Alert, Orientated x 3, Cooperative, No Acute Distress Eyes (Brief) Comments no scleral icterus or trauma. ENMT (Brief) Comments euvolemic clinically at this time. Neck (Brief) Neck: FOUND: midline Comments no JVD. no photophobia. no clinical evidence of meningitis b/l at this time. Respiratory (Brief) Respiratory: FOUND: clear all henry, equal bilaterally, symmetrical Comments except for mild bibasilar wheezes at this time. much improved from yesterday. moving air well. lung sounds heard in all lung henry bilaterally at this time. no crackles, rales. no respiratory distress, retractions, accessory muscle use. Cardiovascular (Brief) Comments stable from previous. no changes. clinically well perfused in all 4 extremities b/l at this time. no LE edema bilaterally at this time. legs symmetrical and compartments soft b/l at this time. no evidence of acute, chronic or worsening neurovascular compromise b/l in LE's at the current time. Abdomen (Brief) Abdominal: FOUND: BS normo active x4, soft (X4.) Comments non tender X4. no hepatosplenomegally, distension or pulsitile mass. (Brief) Comments no tenderness over bladder area. Extremities (Brief) Extremity : Comments see above. pulses strong ad normal in LE's b/l at this time. Lymphatic (Brief) Comments no lymphedema. Musculoskeletal (Brief) Musculoskeletal: FOUND: extremities move equally Comments no deformity or loss of motion. Integumentary (Brief) Integumentary: FOUND: dry, pink, warm Comments no rashes or lesions to uncovered areas. Neurologic (Brief) Comments no focal deficits grossly. Psychiatric (Brief) Psychiatric: FOUND: alert, attentive, normal affect, oriented Laboratory Laboratory Laboratory Tests 04/21/16 13:17 Laboratory Tests 04/21/16 13:17 EKG see below. Microbiology Microbiology Microbiology Date/Time Source Procedure Growth Status 04/21/16 13:17 Peripheral/Iv Start Blood Culture - Preliminary CULTURE INITIATED - RESULTS PENDING Resulted 04/21/16 13:17 Peripheral/Iv Start Blood Culture - Preliminary CULTURE INITIATED - RESULTS PENDING Resulted 04/21/16 12:48 Sputum Expectorated Sputum Gram Stain Pending Resulted 04/21/16 12:48 Sputum Expectorated Sputum Sputum Culture - Preliminary CULTURE INITIATED - RESULTS PENDING Resulted Radiology see above and below. Sepsis Diagnostic Criteria Sepsis SIRS Criteria: WBC >=12,000 or <=4,000 Additional Information Comments otherwise unremarkable. Assessment & Plan Assessment acute hypoxic respiratory failure secondary to acute on chronic COPD exacerbation and influenza B mild multifactorial leukocytopenia, neutropenia and thrombocytopenia, likely from acute illness. patient afebrile adjustment and stress from patient's being critically ill. patient coping well overall acute bronchitis CAD hyperlipidemia HTN -continue inpatient, routine vitals with call parameters, I's and O's, daily weights, telemetry, oxygen as needed, up with assist, cardiac diet. if no clinical improvement, looking for VTE a consideration but clinically current symptoms appear to be from bronchitis/COPD right now. continue contact and droplet precautions for now. -cbc's with some leukopenia and thrombocytopenia which is likely from acute viral illness and otherwise unremarkable. cmp, mg, phos, troponin, CK, TSH unremarkable. respiratory PCR panel positive for influenza B and otherwise unremarkable. EKG non acute. CXR non-acute. -cbc, cmp, DIC panel pending from this AM. -sputum culture and gram stain, blood cultures X2 pending. -cbc, cmp in the AM. -continue IV solumedrol, PO doxycycline, incentive spirometry, duonebs scheduled, tessalon pearles, home lipitor, atenolol/chlorthalidone with hold parameters, home ASA, home potassium. continue tamiflu. continue home vitamin C. -arrangements made so patient can see as he is critically ill. she will maintain the contact and droplet precautions. -further management pending the above. tobaccoism -continue nicotine patch. osteoarthritis -hold home volltaren gel osteopenia -continue home calcium and multivitamin. all other chronic medical conditions stable and no changes to plan of care at this time. ppx -SCD's for DVT ppx and consider pharmacologic DVT ppx today given patient will likely be here longer than overnight. -PO diet above for GI ppx. -FULL CODE -dispo heavily dependent on the above. Code Status CANDICE HARP DO Apr 22, 2016 03:56
--- NOTE | 2016-04-22 06:45 | NUR ---
Oxygenation Turned O2 to 5 L to keep SAO2 above 92 in the evening hours. Turned O2 down to 4 L with stable SAO2 around 0430. Pt denies any SOA. States she feels so much better than she did at home without oxygen.
--- NOTE | 2016-04-22 06:47 | NUR ---
Status Pt up ad precious in room. Steady on feet. IVF running as charted. Dr. Keith requested that this RN take Pt down to see who is a pt in CCU at approx 0130. Contact and droplet precautions maintained while pt taken to CCU in wheelchair. Family present during visit as well. Taught family about using masks and handwashing after leaving room. Family compliant with requests. Will continue to monitor.
[2016-04-22] MEDS: ALBUTEROL/IPRATROPIUM INHAL. 2.5mg-0.5mg/3ml Neb. AEROSOL SCH ×3 (07:51→20:17)
[2016-04-22] MEDS: BENZONATATE 200 MG CAPSULE PO SCH ×3 (08:14→21:02)
[2016-04-22] MEDS: DOXYCYCLINE 100 MG TABLET PO SCH ×2 (08:14→16:17)
[2016-04-22] MEDS: OSELTAMIVIR 30 MG CAPSULE PO SCH ×2 (08:14→21:03)
[2016-04-22] MEDS: NICOTINE 14 MG PATCH TD SCH (08:15)
[2016-04-22] MEDS: NICOTINE PATCH REMOVAL TD SCH (08:15)
[2016-04-22] MEDS: NORMAL SALINE 1,000 ML IV SCH ×2 (08:16→10:37)
[2016-04-22 08:37] LABS: HCT - HEMATOCRIT 38.4 % (36-46); HGB - HEMOGLOBIN 12.5 GM/DL (12-16); MEAN CORPUSCULAR HGB 29.6 UUG (26-34); MEAN CORPUSCULAR HGB CONC(MCHC 32.6 GM/DL (31-37); MEAN CORPUSCULAR VOLUME 90.8 UM3 (80-100); MEAN PLATELET VOLUME 9.3 UM3 (9.4-12.4); RED BLOOD COUNT 4.23 M/MM3 (4.00-5.20); WBC - WHITE BLOOD COUNT 2.6 T/MM3 (4.5-11.0)
[2016-04-22 08:38] LABS: BASOPHILS % (AUTO) 0.4 % (0-2); HGB - HEMOGLOBIN 12.4 GM/DL (12-16); LYMPHOCYTES # (AUTO) 0.4 T/MM3 (1-4.8); LYMPHOCYTES % (AUTO) 14.4 % (23-45); MEAN CORPUSCULAR HGB 28.9 UUG (26-34); MEAN CORPUSCULAR HGB CONC(MCHC 31.8 GM/DL (31-37); MEAN CORPUSCULAR VOLUME 90.9 UM3 (80-100); MEAN PLATELET VOLUME 9.9 UM3 (9.4-12.4); MONOCYTES # (AUTO) 0.1 T/MM3 (0-0.8); MONOCYTES % (AUTO) 3.9 % (0-9.0); NEUTROPHILS #(AUTO)-ABSOLUTE 2.1 T/MM3 (1.8-7.7); NEUTROPHILS % (AUTO) 81.3 % (33-66); RED BLOOD COUNT 4.29 M/MM3 (4.00-5.20); WBC - WHITE BLOOD COUNT 2.6 T/MM3 (4.5-11.0)
[2016-04-22 08:44] LABS: ALBUMIN 3.9 G/DL (3.5-5.0); ALBUMIN/GLOBULIN RATIO 1.2 RATIO (1.1-2.2); ALKALINE PHOSPHATASE 81 U/L (38-126); ALT (SGPT) 27 U/L (9-52); ANION GAP 13 MEQ/L (5-15); AST (SGOT) 32 U/L (14-36); BUN/CREATININE RATIO 35 RATIO (6-26); CALCIUM 9.5 MG/DL (8.4-10.2); CHLORIDE 100 MEQ/L (98-107); CO2 - CARBON DIOXIDE 30 MEQ/L (22-30); CREATININE 0.8 MG/DL (0.7-1.2); GLOMERULAR FILTRATION RATE 71; GLUCOSE 137 MG/DL (65-110); POTASSIUM 4.2 MEQ/L (3.6-5); SODIUM 143 MEQ/L (134-144); TOTAL PROTEIN 7.2 G/DL (6.3-8.2)
[2016-04-22] MEDS ORDERED: CALCIUM CARBONATE 600 MG TABLET PO SCH (09:00)
[2016-04-22 09:25] LABS: INR 1.02 (0.76-1.04); PROTHROMBIN TIME 11.1 SEC (9.31-12.49); PTT 29.8 SEC (24-36)
[2016-04-22] MEDS: ASCORBIC ACID 500 MG TABLET PO SCH (12:32)
[2016-04-22] MEDS: ASPIRIN 325 MG TABLET PO SCH (12:32)
[2016-04-22] MEDS: CALCIUM CARBONATE 600 MG TABLET PO SCH (12:33)
[2016-04-22] MEDS: MULTIVITAMIN PLAIN TABLET PO SCH (12:33)
[2016-04-22] MEDS: POTASSIUM CHLORIDE 10 MEQ TABLET PO SCH (12:33)
[2016-04-22] MEDS: ATENOLOL/CHLORTHALIDONE 50 MG/25 MG TABLET PO SCH (12:33)
--- NOTE | 2016-04-22 13:03 | NUR ---
[facility] CM VISITED PT. CM EXPLAINED ROLE AND PROVIDED CONTACT INFORMATION. PT PLANS TO RETURN HOME POST HOSPITAL STAY. PT DENIES NEEDS. DAUGHTER LIVES WITH PT. PT WILL USE [facility] IF NEEDS OXYGEN AT TIME OF D/C FROM [place]. PT IS AWARE TO CONTACT CM IF NEEDS [facility].
--- NOTE | 2016-04-22 14:04 | ECHOF ---
ECHOCARDIOGRAM DATE OF STUDY 04/21/2016 INDICATIONS Dyspnea. TECHNICAL QUALITY Technically good 2D, M-mode, Doppler echocardiographic images were submitted for interpretation. FINDINGS 1. CARDIAC CHAMBERS: All cardiac chamber measurements are normal. Aortic root diameter is normal. The right ventricle size and contractility appear normal. 2. LEFT VENTRICLE: Concentric LVH, measuring 14.5 mm. Wall motion analysis is normal. Systolic function is normal. EF 60%. Diastolic function parameters are mildly abnormal with E/A 1.1 and E/e' 18. 3. VALVES: Aortic and mitral valve exhibit sclerosis. Valve opening is normal. Tricuspid valve structure and motion appear normal. Normal valve excursion. 4. DOPPLER: Mild mitral regurgitation. Normal flow velocities throughout. Trace aortic regurgitation. Trace tricuspid regurgitation. Estimated systolic PA pressure is normal. 5. No evidence of pericardial effusion, intracardiac masses or demonstrable shunts. 6. IVC is not well seen. IMPRESSION 1. Normal cardiac chamber size. 2. Concentric LVH with normal left ventricular systolic function and mild diastolic dysfunction (E/e' 18). 3. Mild mitral regurgitation. MTDD
--- NOTE | 2016-04-22 20:09 | NUR ---
SUMMARY VS STABLE ON 3L NC. NOT ABLE TO WEAN. INCREASED SOA WITH ACTIVITY. PT DENIES CHEST PAIN. PT UP AD MIKEY. IV FLUIDS DC'S PER DO. PT TAKEN IN WC WITH PORTABLE O2 TO CCU TO VISIT . NO CONCERNS.
[2016-04-22] MEDS: ATORVASTATIN 40 MG TABLET PO SCH (21:03)
--- NOTE | 2016-04-22 22:42 | NUR ---
Status Daughter in room during some of evening. Pt and daughter went to visit in CCU this evening. Denies SOA. States throat gets dry from the oxygen. Drinking water helps the dryness, she states. Up ad precious. Increased O2 to 4 L to keep SAO2 above 92%. Pt still coughing some. VSS. No new concerns at this time.
[2016-04-23] VITALS (7 sets, daily range): BP systolic 141–160; BP diastolic 72–77; PULSE 59–79; RESP 18–20; TEMP 96.8–97.5; O2SAT 90–95
[2016-04-23] MEDS: MethylPREDNISolone SOD SUCC 40mg/1ml IV SCH ×3 (00:51→17:21)
--- NOTE | 2016-04-23 01:41 | NUR ---
Chart Check 24 hour chart check completed
[2016-04-23 05:20] LABS: HCT - HEMATOCRIT 38.2 % (36-46); HGB - HEMOGLOBIN 12.1 GM/DL (12-16); MEAN CORPUSCULAR HGB 29.2 UUG (26-34); MEAN CORPUSCULAR HGB CONC(MCHC 31.7 GM/DL (31-37); MEAN PLATELET VOLUME 10.3 UM3 (9.4-12.4); RED BLOOD COUNT 4.15 M/MM3 (4.00-5.20); WBC - WHITE BLOOD COUNT 5.7 T/MM3 (4.5-11.0)
[2016-04-23 05:37] LABS: BAND NEUTROPHILS # 0.2 T/MM3; LYMPHOCYTES # (MANUAL) 0.6 T/MM3 (1-4.8); NEUTROPHILS #(MANUAL)-ABSOLUTE 4.9 T/MM3 (1.8-7.7); TOTAL CELLS COUNTED 100 %
[2016-04-23 05:49] LABS: ALBUMIN 3.6 G/DL (3.5-5.0); ALBUMIN/GLOBULIN RATIO 1.1 RATIO (1.1-2.2); ALKALINE PHOSPHATASE 79 U/L (38-126); ALT (SGPT) 28 U/L (9-52); ANION GAP 7 MEQ/L (5-15); AST (SGOT) 25 U/L (14-36); BUN/CREATININE RATIO 31 RATIO (6-26); CALCIUM 9.7 MG/DL (8.4-10.2); CHLORIDE 102 MEQ/L (98-107); CO2 - CARBON DIOXIDE 34 MEQ/L (22-30); CREATININE 0.8 MG/DL (0.7-1.2); GLOMERULAR FILTRATION RATE 71; GLUCOSE 146 MG/DL (65-110); POTASSIUM 4.2 MEQ/L (3.6-5); SODIUM 143 MEQ/L (134-144); TOTAL PROTEIN 6.8 G/DL (6.3-8.2)
--- NOTE | 2016-04-23 06:09 | NUR ---
Status Still on 4 L O2. Appeared to rest well. Adequate urine output. No new concerns.
--- NOTE | 2016-04-23 07:44 | NUR ---
Status Patient weaned back down to 3 l/nc. Patient denies pain/nausea. Non-productive cough, improving. Patient states she feels like she is back at her baseline other then wearing the oxygen. Did encourage patient to ambulate later today in halls with mask and oxygen, patient agrees.
[2016-04-23] MEDS: ENOXAPARIN 40 MG/0.4 ML INJECTION SQ SCH (09:00)
[2016-04-23] MEDS: NICOTINE 14 MG PATCH TD SCH (09:01)
[2016-04-23] MEDS: NICOTINE PATCH REMOVAL TD SCH (09:01)
[2016-04-23] MEDS: BENZONATATE 200 MG CAPSULE PO SCH ×3 (09:01→20:30)
[2016-04-23] MEDS: OSELTAMIVIR 30 MG CAPSULE PO SCH ×2 (09:01→20:31)
[2016-04-23] MEDS: DOXYCYCLINE 100 MG TABLET PO SCH ×2 (09:01→17:21)
[2016-04-23] MEDS: ALBUTEROL/IPRATROPIUM INHAL. 2.5mg-0.5mg/3ml Neb. AEROSOL SCH ×3 (10:12→19:00)
--- NOTE | 2016-04-23 10:12 | NUR ---
Ambulation Patient ambulated in the hallways with mask on. Patient weaned to RA with walking however dipped down to 86%. On 1l/nc, sats 88-91% with ambulation. Weaned to 2 l/nc with rest, will continue to wean as able.
[2016-04-23] MEDS: ASPIRIN 325 MG TABLET PO SCH (10:58)
[2016-04-23] MEDS: POTASSIUM CHLORIDE 10 MEQ TABLET PO SCH (10:58)
[2016-04-23] MEDS: ASCORBIC ACID 500 MG TABLET PO SCH (10:58)
[2016-04-23] MEDS: MULTIVITAMIN PLAIN TABLET PO SCH (10:58)
[2016-04-23] MEDS: CALCIUM CARBONATE 600 MG TABLET PO SCH (10:58)
[2016-04-23] MEDS: ATENOLOL/CHLORTHALIDONE 50 MG/25 MG TABLET PO SCH (10:58)
[2016-04-23] MEDS: ACETAMINOPHEN 325 MG TABLET PO PRN (14:28)
--- NOTE | 2016-04-23 15:00 | NUR ---
Care Received verbal report from Kerrie MCKEON and this RN assumed care of patient.
--- NOTE | 2016-04-23 18:21 | NUR ---
Status Patient has been resting in bed quietly most of the afternoon. Sat up to eat dinner and is currently down in the CCU visiting her . Denies pain when asked. Good appetite with supper. Continues on 1 L O2 by NC. Patient up by self without difficulty. Minimal needs this afternoon.
--- NOTE | 2016-04-23 18:42 | PNPDOC ---
Subjective Date DATE: 04/23/16 TIME: 18:19 Subjective patient doing much better overall. she's pleased to know her is doing better. she has no other complaints. no headaches, stroke symptoms, syncope, dizziness, falls, trauma. no events called on telemetry. no acute issues overnight. no URI symptoms. no focal neurologic deficits. no chest pain, SOA , heart failure symptoms, orthopnea, PND, edema. no palpitations. no ab pain, GERD symptoms, nausea, vomiting, diarrhea, constipation, bloody/black stools, dysuria, hematuria, urinary frequency, flank pain, nocturia, other urinary symptoms. she denies body aches, fevers, chills, fatigue, cough, sputum production, hemoptysis. no new issues otherwise at this time. Objective Vital Signs Vital signs Vital Signs Date Time Temp Pulse Resp B/P Pulse Ox O2 Delivery O2 Flow Rate FiO2 04/23/16 16:55 58 04/23/16 16:45 22 95 04/23/16 15:08 97.5 141/77 Nasal Cannula 1.00 Height (Feet): 5 Height (Inches): 3.00 Weight (Kilograms): 104.000 General General Appearance: Alert Eyes (Brief) Comments no scleral icterus or trauma. ENMT (Brief) Comments euvolemic at this time. Neck (Brief) Comments no JVD. trachea midline. no photophobia and no clinical evidence of meningitis at this time. Respiratory (Brief) Respiratory: FOUND: clear all henry, equal bilaterally Comments no crackles, wheezing, rales. no bronchospasm. lung sounds heard in all lung henry b/l at this time. moving air well. no respiratory distress, retractions , accessory muscle use. Cardiovascular (Brief) Comments stable from previous. no changes. clinically well perfused in all 4 extremities at this time. legs symmetrical, no edema and compartments soft b/l in LE's at this time. Abdomen (Brief) Abdominal: FOUND: BS normo active x4, soft (X4.) Comments non tender X4. no guarding, rebound, rigidity. no distension or ascites. no pulsitile masses. (Brief) Comments no tenderness over bladder area. Extremities (Brief) Extremity : Comments see the above. Lymphatic (Brief) Comments no lymphedema. Musculoskeletal (Brief) Musculoskeletal: FOUND: extremities move equally Comments no deformity or loss of motion. Integumentary (Brief) Integumentary: FOUND: dry, pink, warm Comments no rash or lesions to uncovered areas. Neurologic (Brief) Comments no focal deficits grossly. Psychiatric (Brief) Psychiatric: FOUND: alert, attentive, normal affect, oriented Laboratory Laboratory Laboratory Tests 04/22/16 08:21 04/23/16 04:38 Laboratory Tests 04/22/16 08:21 04/23/16 04:38 EKG no new information at this time. Microbiology Microbiology Microbiology Date/Time Source Procedure Growth Status 04/21/16 13:17 Peripheral/Iv Start Blood Culture - Preliminary NO GROWTH AFTER 48 HOURS Resulted 04/21/16 13:17 Peripheral/Iv Start Blood Culture - Preliminary NO GROWTH AFTER 48 HOURS Resulted 04/21/16 12:48 Sputum Expectorated Sputum Gram Stain - Final Complete 04/21/16 12:48 Sputum Culture - Final Normal Respiratory Mag YEAST Complete Radiology no new information at this time. Sepsis Diagnostic Criteria Sepsis SIRS Criteria: WBC >=12,000 or <=4,000 Additional Information Comments no new information at this time. Assessment & Plan Assessment acute hypoxic respiratory failure secondary to acute on chronic COPD exacerbation and influenza B mild multifactorial leukocytopenia, neutropenia and thrombocytopenia, likely from acute illness. patient afebrile. improving. adjustment and stress from patient's being critically ill. patient coping well overall acute bronchitis steroid inducted hyperglycemia CAD hyperlipidemia HTN -continue inpatient, routine vitals with call parameters, I's and O's, daily weights, telemetry, oxygen as needed, up with assist, cardiac diet, contact/droplet precautions. given significant clinical improvement there's not indiction for looking for VTE. patient down to 1 liter of oxygen and will continue to ween. rest and exercise oximetry tomorrow. -cbc's with imroving cytopenias, resolved neutropenia and otherwise unremarkable. cmp with mild steroid induced hyperglycemia and otherwise unremarkable. sputum gram stain and culture unremarkable. -blood cultures negative to date X2 from admission but still pending officially. -cbc, cmp in the AM. -continue IV solumedrol and will convert to PO steroids most likely tomorrow. continue PO doxycycline, incentive spirometry, duonebs, tessalon neumann, lipitor, atenolol/chlorthalidone with hold parameters, ASA, potassium, tamiflu, vitamin C. -arrangements made so patient can see as he is critically ill. she will maintain the contact and droplet precautions. tobaccoism -continue nicotine patch. osteoarthritis -hold home volltaren gel osteopenia -continue home calcium and multivitamin. all other chronic medical conditions stable and no changes to plan of care at this time. ppx -SCD's and SQ lovenox for DVT ppx. -PO diet above for GI ppx. -FULL CODE -dispo hopefully home tomorrow. likely will need oxygen at home. Code Status CANDICE HARP DO Apr 23, 2016 18:24
[2016-04-23] MEDS: ATORVASTATIN 40 MG TABLET PO SCH (20:31)
[2016-04-23] MEDS ORDERED: MENTHOL COUGH DROPS (RICOLA) MM ONE (21:00)
--- NOTE | 2016-04-23 22:26 | NUR ---
Chart Check 24 hour chart check completed
[2016-04-24] VITALS (8 sets, daily range): BP systolic 117–147; BP diastolic 41–87; PULSE 56–76; RESP 16–17; TEMP 96.2–97.1; O2SAT 90–97
[2016-04-24] MEDS: MethylPREDNISolone SOD SUCC 40mg/1ml IV SCH ×2 (00:09→09:47)
[2016-04-24 05:19] LABS: HCT - HEMATOCRIT 37.7 % (36-46); HGB - HEMOGLOBIN 12.2 GM/DL (12-16); MEAN CORPUSCULAR HGB 29.3 UUG (26-34); MEAN CORPUSCULAR HGB CONC(MCHC 32.4 GM/DL (31-37); MEAN CORPUSCULAR VOLUME 90.6 UM3 (80-100); MEAN PLATELET VOLUME 10.3 UM3 (9.4-12.4); RED BLOOD COUNT 4.16 M/MM3 (4.00-5.20); WBC - WHITE BLOOD COUNT 7.7 T/MM3 (4.5-11.0)
[2016-04-24 05:26] LABS: ALBUMIN 3.6 G/DL (3.5-5.0); ALBUMIN/GLOBULIN RATIO 1.2 RATIO (1.1-2.2); ALKALINE PHOSPHATASE 72 U/L (38-126); ALT (SGPT) 23 U/L (9-52); ANION GAP 8 MEQ/L (5-15); AST (SGOT) 23 U/L (14-36); BUN/CREATININE RATIO 41 RATIO (6-26); CALCIUM 10.1 MG/DL (8.4-10.2); CHLORIDE 102 MEQ/L (98-107); CO2 - CARBON DIOXIDE 31 MEQ/L (22-30); CREATININE 0.7 MG/DL (0.7-1.2); GLOMERULAR FILTRATION RATE 82; GLUCOSE 152 MG/DL (65-110); POTASSIUM 4.2 MEQ/L (3.6-5); SODIUM 141 MEQ/L (134-144); TOTAL PROTEIN 6.6 G/DL (6.3-8.2)
--- NOTE | 2016-04-24 06:36 | NUR ---
Status Titrated O2 down to RA. SAO2 stayed above 90% for approx 20 minutes and then dropped. Placed on 1 L to keep SAO2 above 90% while sleeping. Pt HR in 50's while sleeping. Sinus dysrhythmic. Good urine output. Up ad precious in room. Compliant with cares. Will continue to monitor.
[2016-04-24 06:42] LABS: BAND NEUTROPHILS # 0.2 T/MM3; LYMPHOCYTES # (MANUAL) 0.2 T/MM3 (1-4.8); MONOCYTES # (MANUAL) 0.2 T/MM3 (0-0.8); NEUTROPHILS #(MANUAL)-ABSOLUTE 7.1 T/MM3 (1.8-7.7); TOTAL CELLS COUNTED 100 %
[2016-04-24] MEDS: ALBUTEROL/IPRATROPIUM INHAL. 2.5mg-0.5mg/3ml Neb. AEROSOL SCH (07:57)
[2016-04-24] MEDS: BENZONATATE 200 MG CAPSULE PO SCH (09:45)
[2016-04-24] MEDS: DOXYCYCLINE 100 MG TABLET PO SCH (09:45)
[2016-04-24] MEDS: OSELTAMIVIR 30 MG CAPSULE PO SCH (09:45)
[2016-04-24] MEDS: NICOTINE PATCH REMOVAL TD SCH (09:46)
[2016-04-24] MEDS: NICOTINE 14 MG PATCH TD SCH (09:46)
[2016-04-24] MEDS: ENOXAPARIN 40 MG/0.4 ML INJECTION SQ SCH (09:47)
[2016-04-24] MEDS ORDERED: ALBU18HF2 ORAL INH (10:35)
[2016-04-24] MEDS ORDERED: OSEL30CA2 PO (10:35)
[2016-04-24] MEDS ORDERED: BENZ200C36 PO (10:35)
[2016-04-24] MEDS ORDERED: DOXY100T2 PO (10:35)
[2016-04-24] MEDS ORDERED: POTA10TA16 PO (10:35)
[2016-04-24] MEDS ORDERED: PRED10TA PO (10:35)
--- NOTE | 2016-04-24 10:41 | NUR ---
[facility] HENSON VISITED PT. DR HARP PLANS TO D/C HOME TODAY. PT WILL NEED HOME OXYGEN. CM SENT INFORMATION TO [facility]. THEY WILL [facility] TO [facility] AT NOON PT IS AWARE. PT IS AWARE TO CONTACT CM IF NEEDS [facility].
[2016-04-24] MEDS: MULTIVITAMIN PLAIN TABLET PO SCH (11:56)
[2016-04-24] MEDS: ASPIRIN 325 MG TABLET PO SCH (11:56)
[2016-04-24] MEDS: ASCORBIC ACID 500 MG TABLET PO SCH (11:57)
[2016-04-24] MEDS: ATENOLOL/CHLORTHALIDONE 50 MG/25 MG TABLET PO SCH (11:57)
[2016-04-24] MEDS: POTASSIUM CHLORIDE 10 MEQ TABLET PO SCH (11:57)
[2016-04-24] MEDS: CALCIUM CARBONATE 600 MG TABLET PO SCH (11:57)
--- NOTE | 2016-04-24 13:39 | PNPDOC ---
Subjective Date DATE: 04/24/16 TIME: 10:49 Subjective no events called on telemetry. no acute issues overnight. patient feels well. back to her usual baseline. daughter present for most of encounter today. denies headaches, stroke symptoms, syncope, dizziness, falls, trauma, fevers, chills, body aches, fatigue. no URI symptoms. mild dry cough from the oxygen that resolves when takes a drink of water. appetite is good. no photophobia or meningeal symptoms. no chest pain, hemoptysis, sputum production. no orthopnea, PND, edema, heart failure symptoms. no ab pain, GERD symptoms, nausea, vomiting, diarrhea, constipation, bloody/black stools, dysuria, hematuria, urinary frequency, flank pain, nocturia, other urinary symptoms. mood good. able to tolerate ambulation well today. no new issues otherwise at this time. Objective Vital Signs Vital signs Vital Signs Date Time Temp Pulse Resp B/P Pulse Ox O2 Delivery O2 Flow Rate FiO2 04/24/16 09:49 96 Room Air 04/24/16 09:35 76 2.00 04/24/16 07:58 18 04/24/16 07:35 97.1 117/56 Height (Feet): 5 Height (Inches): 3.00 Weight (Kilograms): 104.300 General General Appearance: Alert, Orientated x 3, Cooperative, No Acute Distress Eyes (Brief) Eyes: NOT FOUND: scleral icterus, trauma ENMT (Brief) Comments euvolemic clinically at this time. Neck (Brief) Neck: FOUND: midline, NOT FOUND: JVD, nuchal rigidity, tenderness, tracheal deviation Comments no photophobia. no clinical evidence of meningitis at this time. Respiratory (Brief) Respiratory: FOUND: clear all ehnry, equal bilaterally, symmetrical, NOT FOUND : rales, spasm, tenderness, wheezes Comments no crackles. all findings bilateral. no respiratory distress, retractions, accessory muscle use. moving air well. lung sounds heard in all lung henry bilaterally. Cardiovascular (Brief) Comments stable from previous. no changes. clinically well perfused in all 4 extremities b/l at this time. no LE edema bilaterally. legs symmetrical and compartments soft b/l in LE's at this time. no evidence of acute, chronic or worsening neurovascular compromise b/l in LE's at this time. Abdomen (Brief) Abdominal: FOUND: BS normo active x4, soft (X4.), NOT FOUND: distended, hepatosplenomegaly, pulsatile mass, tender (X4.) Comments no guarding, rebound, rigidity. (Brief) Comments no tenderness over bladder area. Extremities (Brief) Extremity : Comments see above. Lymphatic (Brief) Lymphatic: NOT FOUND: lymphedema Musculoskeletal (Brief) Musculoskeletal: FOUND: extremities move equally, NOT FOUND: deformity, loss of motion Integumentary (Brief) Integumentary: FOUND: dry, pink, warm, NOT FOUND: lesions, rash Comments to uncovered areas. Neurologic (Brief) Comments no focal deficits grossly. Psychiatric (Brief) Psychiatric: FOUND: alert, attentive, normal affect, oriented Laboratory Laboratory Laboratory Tests 04/23/16 04:38 04/24/16 04:43 Laboratory Tests 04/23/16 04:38 04/24/16 04:43 EKG no new information at this time. Microbiology Microbiology Microbiology Date/Time Source Procedure Growth Status 04/21/16 13:17 Peripheral/Iv Start Blood Culture - Preliminary NO GROWTH AFTER 48 HOURS Resulted 04/21/16 13:17 Peripheral/Iv Start Blood Culture - Preliminary NO GROWTH AFTER 48 HOURS Resulted 04/21/16 12:48 Sputum Expectorated Sputum Gram Stain - Final Complete 04/21/16 12:48 Sputum Culture - Final Normal Respiratory Mag YEAST Complete Radiology no new information at this time. Sepsis Diagnostic Criteria Additional Information Comments no new information at this time. Assessment & Plan Assessment acute hypoxic respiratory failure secondary to acute on chronic COPD exacerbation and influenza B mild multifactorial leukocytopenia, neutropenia and thrombocytopenia, likely from acute illness. resolved. adjustment and stress from patient's being critically ill. patient coping well overall acute bronchitis steroid induced hyperglycemia CAD hyperlipidemia HTN -discharge to home today. patient will need 2 liters at exertion and no oxygen on rest. see discharge orders and summary for details. -cbc's normal now. cmp's with mild steroid induced hyperglycemia and otherwise unremarkable. sputum gram stain and culture as well as blood cultures X2 unremarkable. -convert IV steroids to PO. continue PO doxycycline, tessalon perles, lipitor, atenolol/chlorthalidone, ASA, potassium, tamiflu, vitamin C as outpatient. convert duonebs to ventolin inhaled prn. -see discharge summary and orders for details. tobaccoism -continue nicotine patch while inpatient. -patient consulted on smoking cessation. osteoarthritis -discuss voltaren gel as outpatient. it doesn't appear patient has been taking it. osteopenia -continue home calcium and multivitamin. -hold calcium until done with doxycycline in a week. all other chronic medical conditions stable and no changes to plan of care at this time. ppx -SCD's and SQ lovenox for DVT ppx while inpatient. -PO diet above for GI ppx. -FULL CODE -dispo discharge to home today with home oxygen. see discharge summary and orders for details. Code Status CANDICE HARP DO Apr 24, 2016 10:50
--- NOTE | 2016-04-24 14:05 | NUR ---
DISCHARGE DISCHARGE INSTRUCTIONS EXPLAINED TO PATIENT. PACKET SENT WITH PATIENT. PT WAS WEANED TO RA TODAY AND DENIED SOA. PT DISCHARGED ON RA. HAD O2 TANK AND TOOK IT WITH HER. ID BAND REMOVED. MILKA SORIANO'Jacqui. SCRIPTS X6 CALLED TO [facility]. PT ASSISTED OUT VIA WHEELCHAIR.
--- NOTE | 2016-04-25 07:50 | DSF ---
DATE OF ADMISSION 04/21/2016. DATE OF DISCHARGE 04/24/2016. MODE OF ADMISSION: Inpatient. [facility] PHYSICIAN [facility] ADMITTING PHYSICIAN Dr. Keith of [facility] CONSULTING PHYSICIANS There were none. ANCILLARY SERVICES DONE DURING THE STAY Respiratory therapy was consulted for a rest and exercise oximetry on the day of discharge and the patient required no oxygen at rest and 2 liters on exertion. DISCHARGE DIAGNOSES 1. Acute hypoxic respiratory failure secondary to [id number] COPD exacerbation and influenza B infection. 2. Mild multifactorial leukopenia and neutropenia as well as thrombocytopenia. This is likely from acute illness and has resolved. 3. Adjustment and stress from the patient's being critically ill and the patient is coping very well. 4. Acute bronchitis. 5. Mild steroid-induced hyperglycemia. 6. Chronic tobaccoism. 7. Osteopenia. DISCHARGE MEDICINES 1. Ventolin HFA 90 mcg, 1-2 puffs q.6h. p.r.n. shortness of air/wheezing. 2. Tessalon Perles 200 mg p.o. q.8h. p.r.n. cough/congestion x 10 days with no refills. 3. Doxycycline 100 mg p.o. tablet, one p.o. b.i.d. x 7 more days. 4. Tamiflu 75 mg p.o. b.i.d. x 3 days. 5. Potassium chloride 10 mEq p.o. daily. 6. Prednisone taper. The patient will take 40 mg p.o. daily x 3 days, then take 30 mg p.o. daily x 3 days, then take 20 mg p.o. daily x 3 days, then take 10 mg p.o. daily x 3 days and then stop. 7. Vitamin C 500 mg p.o. daily. 8. Aspirin 325 mg p.o. daily. 9. Atenolol/chlorthalidone 50/25, one p.o. daily. 10. Lipitor 40 mg p.o. daily. 11. Calcium carbonate 600 mg p.o. daily. 12. Multivitamin, one p.o. daily. ADDITIONAL INSTRUCTIONS. 1. The patient was recommended to stop smoking. 2. The patient will hold her calcium until finished with her doxycycline and then will restart. 3. If any issues worsen and/or new ones occur, the patient will be seen immediately. 4. Orders to nursing were given to discontinue all lines, IVs and telemetry the patient didn't come in on before discharge. 5. The patient will be started on a proton pump inhibitor which is omeprazole 20 mg p.o. daily until she is finished with her steroids. DISCHARGE ORDERS The patient is discharged to home in stable and good condition now. Discharge Diet: Cardiac and low sodium. Discharge Activity: As tolerated. FOLLOWUP APPOINTMENTS. 1. Appointment with Dolly Barron, Nurse Practitioner, at [facility] in one week with a CBC and CMP drawn the day before and sent to her. 2. [employer] appointment. This is not applicable right now. EXPECTED SIGNS/SYMPTOMS 1. The patient's shortness of breath and cough should continue to improve and eventually resolve. NOTIFY PHYSICIAN 1. Return to care immediately if shortness of breath, fevers, chills, body aches, fatigue, nausea, vomiting, diarrhea, abdominal pain occur and/or cough worsens. 2. Numbers given for contact of physician during business hours and after business hours. PAIN MANAGEMENT/TREATMENT 1. If the patient has any pain, she will let us know right away. WOUND/INCISION CARE This is not applicable. PATIENT INSTRUCTIONS 1. If the patient cannot make her appointments and/or afford her medicines, she will let us know right away. 2. If any issues worsen and/or new ones occur, the patient will be seen immediately. 3. The patient was consulted to get her influenza shot every season. 4. The patient was encouraged strongly to stop smoking. DURABLE MEDICAL EQUIPMENT 1. The patient will be set up for 2 liters of oxygen on exertion as per results of the rest and exercise oximetry today. She will not need any oxygen on rest. Orders were signed for these. FOLLOWUP TESTING The patient will follow with primary care. PERTINENT LABORATORY DONE DURING THE STAY The patient's white blood cell count on admission was 2.7. After treatment and by discharge it was normal. The platelets were at 111,000 on admission and normal by discharge. Hemoglobin and hematocrit were normal throughout. The patient had no bandemia while here. There was a slight predominance of neutrophils while here. Otherwise differentials were unremarkable. Next coagulation studies and a disseminated intravascular coagulation panel were negative on admission. Sodiums were normal while here, as were potassiums. Acid base status was unremarkable while here. Kidney function was normal while here except on admission when her eGFR was in the 50s. Her eGFR was normal thereafter. Blood sugars were in the 90s to low one 100s while here from her steroids. Calcium, phosphorus and magnesium were normal while here. Liver functions tests were essentially normal while here. Creatinine kinase on admission was normal, as was the troponin. Brain natriuretic peptide was normal on admission, as were the patient's serum protein studies. TSH on admission was normal. Urinalysis on admission showed a trace amount of ketones and bacteria but was otherwise unremarkable. Respiratory PCR was positive for influenza B and was otherwise unremarkable. PERTINENT MICROBIOLOGY WHILE HERE Blood cultures x 2 from admission were negative to date. Sputum gram stain and culture showed a small amount of yeast but was otherwise unremarkable. PERTINENT IMAGING WHILE HERE Chest x-ray, PA and lateral, on admission showed some evidence of cardiomegaly and chronic emphysematous changes but was otherwise unremarkable. EKG done on admission showed mild sinus bradycardia with a couple of premature atrial contractions. Rate was in the 50s. Rhythm was sinus. [place] was leftward which is likely chronic. There was a T-wave inversion in lead III but no other concerning ST/T-wave changes. There were no obvious Q-waves. EKG was generally nonacute. Echocardiogram done on the day of admission showed normal cardiac chamber size. There was concentric left ventricular hypertrophy with normal left ventricular systolic function with ejection fractions at or around 60%. There was evidence of some mild diastolic dysfunction. There was evidence of some mild mitral regurgitation and was otherwise unremarkable. HISTORY OF PRESENT ILLNESS AND HOSPITAL COURSE This is a pleasant 70-year-old female known to our clinic. She was very usual state of health until about two weeks ago. Her daughter had repeatedly been in their presence suffering from an influenza-like illness. Her was recently diagnosed with influenza and she had had a similar syndrome for a couple of weeks. This included a runny nose with clear rhinorrhea which had developed into fevers, chills, body aches and fatigue as well as a productive cough with yellow sputum. She has also developed shortness of air and wheezing on exertion. She had been treated as an outpatient previously for this to no avail. She presented to our office with these complaints and was admitted as her oxygen saturations were in the low to mid 80s in the office. The patient was admitted to [facility] for further evaluation and treatment. She was rehydrated with IV normal saline. She was provided oxygen and required up to 5 liters on admission. She was started on IV Solu-Medrol, oral doxycycline, incentive spirometry, DuoNebs and Tessalon Perles. She was started on Tamiflu given her illness was severe enough to be in the hospital. The patient's Tamiflu was renally dosed initially while here but will be 75 mg p.o. b.i.d. on discharge as listed above. Please see above for the extensive imaging and laboratory evaluation undertaken for this patient during this stay. Over the course of the next several days the patient's oxygen needs diminished. By discharge she was requiring no oxygen at rest and only 2 liters on exertion. Rest and exercise oximetry and respiratory therapy were consulted as listed above. These confirm those results. She was sent out on the above-listed medicines in stable and good condition with followup as listed and noted above. The patient has been told to tell all of her household contacts to see their primary care physician immediately and let them know that they have been exposed to influenza. The patient will be started on a proton pump inhibitor as listed above while outpatient as she is on the steroids, doxycycline as well as her home aspirin. She was not having any gastrointestinal or gastritis symptoms while here and review of systems for GI warning symptoms was unremarkable. The patient does have a history of smoking. She was on a nicotine patch while here and was consulted at length to cease smoking and she verbalized understanding. In regards to the patient's osteopenia. She will hold her home calcium until done with the above-listed medicines for her COPD exacerbation. At this time she will restart. She will continue on her multivitamin. All other chronic medical conditions were stable and no changes to plan of care at this time. For DVT prophylaxis the patient was on SCDs and subcutaneous Lovenox while here. The patient was on an oral diet while here for GI prophylaxis. The patient was a FULL CODE while here. Disposition is today and to home in stable and good condition. The patient's usual primary care provider [facility]. [facility]
--- NOTE | 2016-04-25 15:25 | NUR ---
CM NO VM
--- NOTE | 2016-04-26 15:36 | NUR ---
CM PHONE DOES NOT ACCEPT MESSAGES
== END 2016-04-24 14:05 | disposition home or self-care (01) | DRG 190 ==
LOC: MED 11:36
PROVIDERS: ADMIT Internal Medicine; ATTEND Internal Medicine
DX: J44.0 Chronic obstructive pulmonary disease with (acute) lower respiratory infection (principal); J96.01 Acute respiratory failure with hypoxia; J11.1 Influenza due to unidentified influenza virus with other respiratory manifestations; J20.9 Acute bronchitis, unspecified; J44.1 Chronic obstructive pulmonary disease with (acute) exacerbation; R73.9 Hyperglycemia, unspecified; I25.10 Atherosclerotic heart disease of native coronary artery without angina pectoris; I10 Essential (primary) hypertension; E78.5 Hyperlipidemia, unspecified; F17.200 Nicotine dependence, unspecified, uncomplicated; M19.91 Primary osteoarthritis, unspecified site; M85.80 Other specified disorders of bone density and structure, unspecified site; Z79.82 Long term (current) use of aspirin; T38.0X5A Adverse effect of glucocorticoids and synthetic analogues, initial encounter
CPT/HCPCS: 36415; 80053; 81001; 82550; 83735; 83880; 84100; 84443; 84484; 85025; 85379; 85384; 85610; 85730; 87040; 87070; 87205; 87486; 87581; 87633; 87798; 93005; 93306; 94640; 94761

== ENCOUNTER → 2016-04-27 | Outpatient (CLI) | payer MEDICARE, MEDICAID ==
[~2016-04-27] MED LIST changes: +ALBU18HF2 ORAL INH; +BENZ200C36 PO; +DOXY100T2 PO; +OSEL30CA2 PO; +POTA10TA16 PO; -POTASSIUM CHLORIDE 10 MEQ TABLET PO SCH; +PRED10TA PO
== END ==
LOC: WC.BC 11:11
PROVIDERS: ATTEND Nurse Practitioner
DX: C50.911 Malignant neoplasm of unspecified site of right female breast (principal); N64.59 Other signs and symptoms in breast; Z08 Encounter for follow-up examination after completed treatment for malignant neoplasm; Z80.3 Family history of malignant neoplasm of breast
CPT/HCPCS: G0204; G0279